=== PATIENT | female | born 1945 | race Two or more races ===

== ENCOUNTER 2016-10-10 06:44 | Day surgery (SDC) | payer MEDICARE ==
[~2016-10-10 06:44] MED LIST: BUPIVACAINE HCL 0.75% INJ/PF (7.5 MG/1 ML) 10 ML SDV OD PRN; KETOROLAC TROMETHAMINE 0.45% 4 DROP/0.4 ML DROPERETTE OD PRN; LIDOCAINE 4% INJ/PF (40 MG/ML) 5 ML AMPUL OD PRN
[2016-10-10] MEDS: TROPICAMIDE 1% OPH SOLN 3 ML OD PRN ×3 (07:07→07:35)
[2016-10-10] MEDS: CYCLOPENTOLATE 0.2%/PHENYLEPHRINE 1% OPH SOLN 2 ML OD PRN ×3 (07:08→07:36)
[2016-10-10] MEDS: BESIFLOXACIN HCL 0.6% OPH SUSP 5 ML BOTTLE OD PRN ×4 (07:09→08:29)
[2016-10-10] MEDS: TETRACAINE HCL 0.5% OPH SOLN 0.6 ML DROPERETTE OD PRN ×2 (07:11→07:38)
[2016-10-10] MEDS ORDERED: EPINEPHRINE INJ/PF 1 MG/1 ML AMPULE ONE (07:13)
[2016-10-10] MEDS ORDERED: FENTANYL CITRATE INJ/PF 100 MCG/2 ML AMPUL ONE (07:27)
[2016-10-10] MEDS ORDERED: MIDAZOLAM 2 MG/2 ML INJ ONE (07:27)
[2016-10-10] MEDS: CHONDR SU A NA/HYALUR INTRAOC KIT (SURGICARE) ONE ×2 (08:22)
--- NOTE | 2016-10-10 08:44 | [facility] OPERATIVE REPORT E ---
[facility] Operative Report NAME: DASHA GARCIA AGE: 70Y DATE OF SURGERY: 10/10/2016 ROOM: PREOPERATIVE DIAGNOSIS: CATARACT, RIGHT EYE. POSTOPERATIVE DIAGNOSIS: CATARACT, RIGHT EYE. PROCEDURE; Phacoemulsification with posterior chamber intraocular lens, right eye. SURGEON: KYAW FLORES MD ANESTHESIA: Topical with MAC. INDICATIONS FOR SURGERY: Difficulty reading words on TV and driving at night. Best-corrected visual acuity 20/40. PROCEDURE: The patient was brought to the operating room and placed on the operative table. Following tetracaine drops, topical anesthesia was administered. This consisted of instrument wipe pledgets soaked in a solution of 4% Xylocaine mixed with 0.75% Marcaine in a 1:2 ratio. A 2 x 1 cm pledget was placed in the superior fornix. A 1 x 1 cm pledget was placed in the inferior fornix. The eye was patched shut for 5 minutes. The patch was removed. The eye was sterilely prepped and draped in the usual manner. Lid speculum was placed in the eye. The pledgets were removed. Then 4-0 black silk sutures were placed around the superior and the inferior rectus muscles to be used as traction. A conjunctival peritomy was made at the 10 o'clock position. Hemostasis was attained with bipolar cautery. A posterior limbal groove was created using a crescent knife and dissected anteriorly towards the cornea. A sharp point blade was used to create a paracentesis site at the 2 o'clock position. A 2.4 mm keratome was used to enter the anterior chamber through the groove. Viscoelastic was injected into the anterior chamber. An anterior capsulotomy was performed using Utrata forceps in a capsulorrhexis fashion. Hydrodissection and hydrodelineation were performed. Phacoemulsification was performed in dlleri-zcm-uptccoc technique. A total of 1 minute 3 seconds phaco time was used. Following this, the I/A unit was used to remove residual cortex. Viscoelastic was injected into the capsular bag. Intraocular lens model SN60WF, 25.0 diopters, serial number [id number] was placed in the capsular bag. The I/A unit was used to remove residual viscoelastic. The wound was seen to be watertight under high and low pressure, and no sutures were placed. The intraocular lens was well centered. The pressure was adjusted in the eye to normal pressure. The 4-0 black silk sutures and lid speculum were removed. The eye was shielded after Besivance drops were placed. The patient tolerated the procedure well and was sent to the recovery room in good condition. DICTATING PHYSICIAN: KYAW FLORES M.D. [id number] PHY#: [id number] ID: [id number] JOB#: [id number] ACCT: [id number] cc:KYAW FLORES M.D. >
--- NOTE | 2016-10-10 08:44 | [facility] DISCHARGE SUMMARY E ---
[facility] Discharge Summary NAME: DAHSA GARCIA AGE: 70Y ADMITTED: 10/10/2016 DISCHARGED: 10/10/2016 HOSPITAL COURSE: The patient is a 70-year-old lady who underwent uneventful cataract extraction with intraocular lens implant of the right eye on 10/10/2016. DISPOSITION: She will be discharged to home. DISCHARGE INSTRUCTIONS: She is instructed to resume preoperative medications, take Tylenol as needed for discomfort, to keep her eye shielded. To use Besivance, Durezol, and Ilevro at 3 p.m. and 8 p.m. Follow up in my office in 1 day. DICTATING PHYSICIAN: KYAW FLORES M.D. [id number] [id number] Y#: [id number] ID: [id number] JOB#: [id number] ACCT: [id number] cc:KYAW FLORES M.D. >
== END 2016-10-10 09:08 | disposition home or self-care (01) ==
LOC: SC 06:44
PROVIDERS: ATTEND Ophthalmology
PROC: 08RJ3JZ Replacement of Right Lens with Synthetic Substitute, Percutaneous Approach (ICD-10-PCS; principal; 2016-10-10 08:00)
DX: H25.813 Combined forms of age-related cataract, bilateral (principal); H17.89 Other corneal scars and opacities; E78.00 Pure hypercholesterolemia, unspecified; I10 Essential (primary) hypertension; Z87.891 Personal history of nicotine dependence; Z79.899 Other long term (current) drug therapy; I25.2 Old myocardial infarction; Z79.82 Long term (current) use of aspirin; Z88.5 Allergy status to narcotic agent
CPT/HCPCS: 66984; V2632; J2250; J3490 ×3; A9270; J0171; J3010; 142

== ENCOUNTER 2016-10-31 08:33 | Day surgery (SDC) | payer MEDICARE ==
[~2016-10-31 08:33] MED LIST changes: -BUPIVACAINE HCL 0.75% INJ/PF (7.5 MG/1 ML) 10 ML SDV OD PRN; +BUPIVACAINE HCL 0.75% INJ/PF (7.5 MG/1 ML) 10 ML SDV OS PRN; -KETOROLAC TROMETHAMINE 0.45% 4 DROP/0.4 ML DROPERETTE OD PRN; +KETOROLAC TROMETHAMINE 0.45% 4 DROP/0.4 ML DROPERETTE OS PRN; -LIDOCAINE 4% INJ/PF (40 MG/ML) 5 ML AMPUL OD PRN; +LIDOCAINE 4% INJ/PF (40 MG/ML) 5 ML AMPUL OS PRN; +MIDAZOLAM 2 MG/2 ML INJ ONE
[2016-10-31] MEDS ORDERED: EPINEPHRINE INJ/PF 1 MG/1 ML AMPULE ONE (08:54)
[2016-10-31] MEDS ORDERED: CHONDR SU A NA/HYALUR INTRAOC KIT (SURGICARE) ONE (08:55)
[2016-10-31] MEDS: TROPICAMIDE 1% OPH SOLN 3 ML OS PRN ×3 (09:19→09:34)
[2016-10-31] MEDS: TETRACAINE HCL 0.5% OPH SOLN 0.6 ML DROPERETTE OS PRN ×2 (09:19→10:02)
[2016-10-31] MEDS: BESIFLOXACIN HCL 0.6% OPH SUSP 5 ML BOTTLE OS PRN ×3 (09:19→10:33)
[2016-10-31] MEDS: CYCLOPENTOLATE 0.2%/PHENYLEPHRINE 1% OPH SOLN 2 ML OS PRN ×3 (09:19→09:34)
--- NOTE | 2016-10-31 10:57 | [facility] DISCHARGE SUMMARY E ---
[facility] Discharge Summary NAME: DASHA GARCIA AGE: 70Y ADMITTED: 10/31/2016 DISCHARGED: 10/31/2016 FINAL DIAGNOSIS: Cataract, left eye. HOSPITAL COURSE: The patient is a 70-year-old lady who underwent uneventful cataract extraction with intraocular lens implant, left eye, on 10/31/2016. She will be discharged to home. She was instructed to resume preoperative medications, to take Tylenol as needed for discomfort, to keep her eye shielded, to use Besivance, Durezol and Ilevro at 3 p.m. and 8 p.m., and to follow up in my office in 1 day. DICTATING PHYSICIAN: KYAW FLORES M.D. [id number] [id number] PHY#: [id number] ID: [id number] JOB#: [id number] ACCT: [id number] cc:KYAW FLORES M.D. >
--- NOTE | 2016-10-31 10:57 | [facility] OPERATIVE REPORT E ---
[facility] Operative Report NAME: DASHA GARCIA AGE: 70Y DATE OF SURGERY: 10/31/2016 ROOM: PREOPERATIVE DIAGNOSIS: Cataract, left eye. POSTOPERATIVE DIAGNOSIS: Cataract, left eye. PROCEDURE PERFORMED: Phacoemulsification with posterior chamber intraocular lens implant, left eye. SURGEON: KYAW FLORES M.D. ANESTHESIA: Topical with MAC. INDICATIONS FOR SURGERY: Difficulty with night driving. Imbalance after surgery in the right eye. PROCEDURE: The patient was brought to the Operating Room and placed on the operative table. Following tetracaine drops, topical anesthesia was administered. This consisted of instrument wipe pledgets soaked in a solution of 4% Xylocaine mixed with 0.75% Marcaine in a 1:2 ratio. A 2 x 1 cm pledget was placed in the superior fornix. A 1 x 1 cm pledget was placed in the inferior fornix. The eye was patched shut for 5 minutes. The patch was removed. The eye was sterilely prepped and draped in the usual manner. Lid speculum was placed in the eye. The pledgets were removed and 4-0 black silk sutures were placed around the superior and the inferior rectus muscles to be used as traction. A conjunctival peritomy was made at the 10 o'clock position. Hemostasis was obtained with bipolar cautery. A posterior limbal groove was created using a crescent knife and dissected anteriorly towards the cornea. A sharp point blade was used to create a paracentesis site at the 2 o'clock position. A 2.4-mm keratome was used to enter the anterior chamber through the groove. Viscoelastic was injected into the anterior chamber. An anterior capsulotomy was performed using Utrata forceps in a capsulorrhexis fashion. Hydrodissection and hydrodelineation were performed. Phacoemulsification was performed in kpoxfk-qyg-oavpchb technique. A total of 52 seconds phaco time was used. Following this, the I/A unit was used to remove residual cortex. Viscoelastic was injected into the capsular bag. Intraocular lens model SN60WF, 25.0 diopters, serial number [id number], was placed in the capsular bag. The I/A unit was used to remove residual viscoelastic. The wound was seen to be watertight under high and low pressure, and no sutures were placed. The intraocular lens was well centered. The pressure was adjusted in the eye to normal pressure. The 4-0 black silk sutures and lid speculum were removed. The eye was shielded after Besivance drops were placed. The patient tolerated the procedure well and was sent to the Recovery Room in good condition. DICTATING PHYSICIAN: KYAW FLORES M.D. [id number] [id number] PHY#: [id number] ID: [id number] JOB#: [id number] ACCT: [id number] cc:KYAW FLORES M.D. >
== END 2016-10-31 11:11 | disposition home or self-care (01) ==
LOC: SC 08:33
PROVIDERS: ATTEND Ophthalmology
PROC: 08RK3JZ Replacement of Left Lens with Synthetic Substitute, Percutaneous Approach (ICD-10-PCS; principal; 2016-10-31 10:00)
DX: H25.812 Combined forms of age-related cataract, left eye (principal); H43.811 Vitreous degeneration, right eye; Z96.1 Presence of intraocular lens; I10 Essential (primary) hypertension; R00.2 Palpitations; Z79.899 Other long term (current) drug therapy; Z79.82 Long term (current) use of aspirin; Z88.5 Allergy status to narcotic agent
CPT/HCPCS: 66984; V2632; J2250; J3490 ×3; A9270; J0171; 142

== ENCOUNTER 2017-03-09 08:40 | Day surgery (SDC) | payer MEDICARE ==
[2017-03-09] MEDS ORDERED: ALBUTEROL SULFATE 0.083% NEB 2.5 MG/3 ML AMPUL NEB ONE (09:54)
[2017-03-09] MEDS ORDERED: LIDOCAINE 2%/EPINEPHRINE INJ 20 ML VIAL ONE (10:11)
[2017-03-09] MEDS ORDERED: NEO/POLYMYX B SULF/DEXAMETH OPH OINTMENT 3.5 GM ONE (10:12)
[2017-03-09] MEDS ORDERED: BUPIVACAINE HCL 0.75% INJ/PF (7.5 MG/1 ML) 10 ML SDV ONE (10:12)
[2017-03-09] MEDS ORDERED: TETRACAINE HCL 0.5% OPH SOLN 2 ML ONE (10:12)
[2017-03-09] MEDS ORDERED: POVIDONE-IODINE 5% OPH PREP SOLN 30 ML ONE (10:12)
[2017-03-09] MEDS ORDERED: MIDAZOLAM 2 MG/2 ML INJ ONE (11:15)
[2017-03-09] MEDS ORDERED: FENTANYL CITRATE INJ/PF 100 MCG/2 ML AMPUL ONE (11:16)
[2017-03-09] MEDS ORDERED: PROPOFOL INJ 200 MG/20 ML VIAL IV ONE (11:16)
[2017-03-09] MEDS: THROMBIN (BOVINE) TOPICAL 5000 UNIT VIAL ONE ×2 (11:27)
--- NOTE | 2017-03-09 13:09 | DISCHARGE SUMMARY E ---
Discharge Summary NAME: DASHA GARCIA : 1945 AGE: 71Y ADMITTED: 03/09/2017 DISCHARGED: 03/09/2017 HOSPITAL COURSE: The patient is a 71-year-old who underwent uneventful upper eyelid blepharoplasty. Indications for surgery were her upper lids were blocking her peripheral vision and lids feeling very heavy and tired making it difficult to read. Surgery was performed uneventfully. She will be discharged to home. She is instructed to use Maxitrol ointment tonight and then begin Stratamed ointment twice a day, to follow up in my office in 1 week, to use a blepharoplasty eye patch 10 minutes out of every hour while awake, to keep the head of her bed elevated, and to take Tylenol as needed for discomfort. DICTATING PHYSICIAN: KYAW FLORES M.D. [id number] [id number] PHY#: [id number] ID: [id number] JOB#: [id number] ACCT: [id number] cc:KYAW FLORES M.D. >
--- NOTE | 2017-03-09 14:34 | [facility] OPERATIVE REPORT E ---
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 OPERATION: Bilateral upper eyelid blepharoplasty. SURGEON: KYAW FLORES M.D. ANESTHESIA: Local with MAC. PROCEDURE: The patient was brought to the operating room and under monitored anesthesia care, tetracaine drops were placed in the eyes. Both eyelids were sterilely prepped and draped in the usual manner. Attention was directed to both upper lids where the upper lid crease was marked with a marking pen and 0.3 mm forceps were used to estimate the excess upper eyelid skin to be excised. This was marked in an elliptical fashion. Local anesthesia was administered which consisted of 3 mL of 2% Xylocaine with epinephrine mixed with 0.75% Marcaine. This was placed in both upper lids and diffused with a Q-Tip. Attention was directed to the left upper lid where the elliptical piece of skin was removed. Hemostasis was obtained with bipolar cautery. The orbital septum was opened in prolapsed retroseptal fashion and was grasped with a hemostat, cut and cauterized. Thrombin was placed on the incision. An identical procedure was performed on the right upper eyelid. Wound closure was completed with interrupted silk sutures, 3 sutures spaced equally through the lid, taking a deep bite of the fascia. Additional closure was completed with running 6-0 nylon sutures in both upper lids. There was good hemostasis and closure of the lids at the end of the surgery. TobraDex ointment was placed on the lids. The patient tolerated the procedure well and was sent to the recovery room in good condition. DICTATING PHYSICIAN: KYAW FLORES M.D. [id number] [id number] PHY#: [id number] ID: [id number] JOB#: [id number] ACCT: [id number] cc:KYAW FLORES M.D. >
== END 2017-03-09 13:21 | disposition home or self-care (01) ==
LOC: SC 08:40
PROVIDERS: ATTEND Ophthalmology
PROC: 080N0ZZ Alteration of Right Upper Eyelid, Open Approach (ICD-10-PCS; 2017-03-09)
PROC: 080P0ZZ Alteration of Left Upper Eyelid, Open Approach (ICD-10-PCS; principal; 2017-03-09 10:15)
DX: H02.831 Dermatochalasis of right upper eyelid (principal); H02.834 Dermatochalasis of left upper eyelid; H53.40 Unspecified visual field defects; Z96.1 Presence of intraocular lens; I10 Essential (primary) hypertension; E78.00 Pure hypercholesterolemia, unspecified; Z88.5 Allergy status to narcotic agent; Z87.891 Personal history of nicotine dependence; Z79.82 Long term (current) use of aspirin; I25.2 Old myocardial infarction
CPT/HCPCS: 15823; J2250; J3490 ×5; J3010; J2704; A9270; 103